=== PATIENT | male | born 1960 | race Caucasian/White ===

== ENCOUNTER 2020-03-02 05:37 | Day surgery (SDC) | payer MEDICAID ==
[2020-02-24 15:15] LABS: BASOPHILS # (AUTO) 0.1 X10'3 (0-0.2); BASOPHILS % (AUTO) 1.3 % (0-1); EOSINOPHILS # (AUTO) 0.4 X10'3 (0-0.9); EOSINOPHILS % (AUTO) 3.8 % (0-6); LYMPHOCYTES # (AUTO) 2.8 X10'3 (1.1-4.8); LYMPHOCYTES % (AUTO) 29.8 % (21-51); MEAN CORPUSCULAR HEMOGLOBIN 32.7 PG (27.0-31.0); MEAN CORPUSCULAR HGB CONC 33.9 g/dL (33.0-36.5); MEAN CORPUSCULAR VOLUME 96.3 FL (78-98); MEAN PLATELET VOLUME 6.7 FL (7.4-10.4); MONOCYTES # (AUTO) 0.9 X10'3 (0-0.9); NEUTROPHILS # (AUTO) 5.2 X10'3 (1.8-7.7); NEUTROPHILS % (AUTO) 55.1 % (42-75); PRE OP HEMATOCRIT 44.9 % (42.0-52.0); PRE OP HEMOGLOBIN 15.2 g/dL (14.0-17.9); PRE OP PLATELET COUNT 289 X10'3 (140-440); RED BLOOD COUNT 4.66 X10'6 (4.70-6.10); RED CELL DISTRIBUTION WIDTH 16.3 % (11.5-14.5)
[2020-02-24 15:25] LABS: ALBUMIN 4.3 G/DL (3.4-5.0); ALBUMIN/GLOBULIN RATIO 1.1 (1.1-1.5); ALKALINE PHOSPHATASE 148 IU/L (46-116); BLOOD UREA NITROGEN 26 MG/DL (7-18); BUN/CREATININE RATIO 27.4 (5.4-32.0); CALCIUM 9.5 MG/DL (8.5-10.1); CHLORIDE 102 MMOL/L (99-107); CREATININE 0.95 MG/DL (0.60-1.10); PRE OP ANION GAP 13 (8-16); PRE OP AST 60 U/L (10-37); PRE OP BILIRUB, TOTAL 0.5 MG/DL (0.0-1.0); PRE OP GLUCOSE 119 MG/DL (70-104); PRE OP SODIUM 138 MMOL/L (135-145); TOTAL CARBON DIOXIDE 23.3 MMOL/L (24-32); TOTAL PROTEIN 8.1 G/DL (6.4-8.2); eGFR 81 ML/MIN
[2020-02-24 15:28] LABS: PRE OP ALT 100 U/L (30-65)
[2020-03-02] VITALS (16 sets, daily range): BP systolic 128–168; BP diastolic 93–116
[~2020-03-02] VITALS: Ht 185.4 cm; Wt 113.4 kg
[~2020-03-02 05:37] MED LIST: CefTRIAXone/D5W-Rocephin 1gm 50 ML IV ONE; GLU850T PO; HYDR12.55 PO; INSU100I31 SQ; LISI10TA4 PO; MULT-687 PO; famotidine 20mg tablet PO ONE; normal saline 1000ml 1,000 ML IV SCH
[2020-03-02] MEDS ORDERED: LIDOcaine 1% (10mg/ml) 2ml vial ONE (06:14)
[2020-03-02 07:08] LABS: PRE OP PROTIME 10.5 SECONDS (9.0-12.0)
[2020-03-02] MEDS ORDERED: proCHLORperazine 10 MG/2 ml inj IV PRN (07:30)
[2020-03-02] MEDS ORDERED: morphine 2 MG/ML inj. syringe IV PRN (07:30)
[2020-03-02] MEDS ORDERED: morphine 4 MG/ML inj SYRINge IV PRN (07:30)
[2020-03-02] MEDS ORDERED: meperidine/PF 25mg/ml syringe IV PRN ×3 (07:30)
[2020-03-02] MEDS ORDERED: ringers solution, lacted 1,000 ML IV SCH (07:30)
[2020-03-02] MEDS ORDERED: ondansetron/PF 4mg/2ml inj IV PRN (07:30)
[2020-03-02] MEDS ORDERED: midazolam 2 mg/2 ml injection ONE (07:43)
[2020-03-02] MEDS ORDERED: fentaNYL/PF 50MCG/1 ML 2ML syringe ONE (07:43)
[2020-03-02] MEDS ORDERED: LIDOcaine 2% (20mg/ml) 5ml vial ONE (07:45)
[2020-03-02] MEDS ORDERED: propofol inj 20 ML IV ONE (07:45)
[2020-03-02] MEDS ORDERED: rocuronium 10mg/ml inj IV ONE (07:46)
[2020-03-02] MEDS ORDERED: sevoflurane 250ml liquid IH ONE (07:50)
[2020-03-02] MEDS ORDERED: dexamethasone sod phosphate 10mg/ml inj ONE (07:50)
[2020-03-02] MEDS ORDERED: glycopyrrolate 0.2mg/ml inj ONE (07:50)
[2020-03-02] MEDS ORDERED: neostigmine methylsulfate 1 MG/ML 10ml vial ONE (07:50)
[2020-03-02] MEDS ORDERED: ondansetron/PF 4mg/2ml inj ONE (07:58)
[2020-03-02] MEDS ORDERED: succinylcholine 20mg/ml inj IV ONE (08:05)
[2020-03-02] MEDS ORDERED: meperidine/PF 25mg/ml syringe ONE (09:27)
[2020-03-02] MEDS ORDERED: sodium chloride 0.45% 1,000 ML IV SCH (09:40)
[2020-03-02] MEDS ORDERED: ondansetron/PF 4mg/2ml inj IV ONE (09:40)
[2020-03-02] MEDS ORDERED: HYDROcodone/acetaminophen 5mg/325mg tablet PO PRN (09:40)
--- NOTE | 2020-03-02 09:46 | NUR ---
Received from OR via , accompanied by Anesthesiologist DR CORTEZ and report given by Anesthesiolgist. AWAKENS TO VOICE. VITALS STABLE. KHANG PAIN. ABD SOFT.
--- NOTE | 2020-03-02 10:56 | NUR ---
Report called to receiving nurse. Transferred via [facility] . Special Issues communicated to receiving nurse. AWAKE AND ORIENTED. VITALS STABLE. DRESSING DI. KHANG PAIN. ABD REMAINS SOFT.
--- NOTE | 2020-03-02 11:00 | NUR ---
RECEIVED PT FROM RECOVERY. PT HAS BEEN IN RECOVERY 1 HR. STABLE, TO GO HOME IN 3 MORE HOURS AT 1400. Addendum: 03/02/20 at 1210 by Cassie Kay RN Amended: Links added.
== END 2020-03-02 14:02 | disposition home or self-care (01) ==
LOC: PAS 05:37
PROVIDERS: ATTEND Radiology Vascular & Interventional Radiology
DX: C78.7 Secondary malignant neoplasm of liver and intrahepatic bile duct (principal); C18.7 Malignant neoplasm of sigmoid colon; I10 Essential (primary) hypertension; I25.2 Old myocardial infarction; E11.9 Type 2 diabetes mellitus without complications; E66.01 Morbid (severe) obesity due to excess calories; Z68.33 Body mass index [BMI] 33.0-33.9, adult; Z98.890 Other specified postprocedural states; Z93.3 Colostomy status; Z79.84 Long term (current) use of oral hypoglycemic drugs; Z79.899 Other long term (current) drug therapy
CPT/HCPCS: 36415; 47382; 77013; 80053; 82948; 85025; 85610; 86885; 86900; 86901; 87635; 93005; J0330; J0696; J1100; J2001; J2175; J2250; J2405; J2704; J2710; J3010; J7030; J7120; A4618; J3490